=== PATIENT | male | born 1975 | race Caucasian/White ===

== ENCOUNTER 2019-05-17 20:20 | Inpatient (IN) | payer MEDICAID ==
[~2019-05-17] VITALS: Ht 165.1 cm; Wt 111.6 kg
[2019-05-17] MEDS ORDERED: ASPIRIN 81MG TABLET PO ONE (21:00)
[2019-05-17 21:17] LABS: BASOPHILS % 0.6 % (0.0-2.0); EOSINOPHILS % 0.8 % (0.0-5.0); HEMATOCRIT. 45.5 % (42.0-52.0); HEMOGLOBIN. 15.9 g/dL (14.0-18.0); LYMPHOCYTES % 27.8 % (20.0-50.0); MONOCYTES % 9.5 % (2.0-8.0); NEUTROPHILS % 61.3 % (40.0-76.0); PLATELET 216 x1000/uL (130-400); RED BLOOD CELL COUNT 5.29 mill/uL (4.7-6.1)
[2019-05-17 21:25] LABS: CHLORIDE 102 mEq/L (98-107)
[2019-05-17] MEDS: NITROGLYCERIN 0.4MG TABLET SL SL PRN ×3 (21:28→21:56)
[2019-05-17] MEDS ORDERED: ACETAMINOPHEN 325MG TABLET PO STA (21:36)
[2019-05-17] MEDS ORDERED: SODIUM CHLORIDE 0.9% 1000ML BAG (SEPSIS BOLUS) IV ONE (21:45)
[2019-05-17] MEDS ORDERED: OSELTAMIVIR 75MG CAPSULE PO ONE (21:45)
[2019-05-17] MEDS ORDERED: LEVOFLOXACIN 750MG PREMIX 150 ML IV ONE (21:45)
[2019-05-17] MEDS ORDERED: INSULIN REGULAR (HUMULIN R) UD 100 UNITS/ML SYR SUBCUT ONE (22:00)
[2019-05-17] MEDS ORDERED: INSULIN REGULAR (HUMULIN R) 300UNITS/3ML SUBCUT ONE (22:15)
[2019-05-18] MEDS ORDERED: ACETAMINOPHEN 650MG/20.3ML UDC GT PRN (02:30)
[2019-05-18] MEDS ORDERED: MAGNESIUM/ALUMINUM HYDROXIDE/SIMETHICONE 30ML UDC PO PRN (02:30)
[2019-05-18] MEDS ORDERED: ACETAMINOPHEN 650MG SUPP PR PRN (02:30)
[2019-05-18] MEDS ORDERED: IPRATROPIUM/ALBUTEROL 0.5-3(2.5)MG/3ML NEB HHN PRN (02:30)
[2019-05-18] MEDS ORDERED: GUAIFENESIN 200MG/10ML SUGAR FREE UDC PO PRN (02:30)
[2019-05-18] MEDS ORDERED: LEVOFLOXACIN 500MG PREMIX 100 ML IV SCH ×3 (02:30→23:00)
[2019-05-18] MEDS ORDERED: DEXTROSE 50% WATER 50ML SYRINGE IV PRN (02:30)
[2019-05-18] MEDS ORDERED: ONDANSETRON HCL 4MG/2ML INJ IV PRN (02:30)
[2019-05-18] MEDS ORDERED: DIPHENHYDRAMINE 50MG/ML VIAL IV PRN (02:30)
[2019-05-18] MEDS ORDERED: CLONIDINE 0.1MG TABLET PO PRN (02:30)
[2019-05-18] MEDS: SODIUM CHLORIDE 0.9% INJ 3ML FLUSH IVF SCH ×3 (08:07→21:16)
[2019-05-18] MEDS: BLOOD SUGAR DIAGNOSTIC STRIP TEST SCH ×4 (08:56→20:29)
[2019-05-18] MEDS ORDERED: ENOXAPARIN 40MG/0.4ML SYR SUBCUT SCH (09:00)
[2019-05-18] MEDS: INSULIN LISPRO 100 UNITS/ML SUBCUT SCH ×4 (09:10→20:38)
[2019-05-18 10:44] LABS: CLARITY URINE CLEAR (CLEAR); COLOR URINE YELLOW (YELLOW); KETONES URINE 1+ (NEGATIVE); LEUKOCYTE ESTERASE URINE NEGATIVE (NEGATIVE); NITRITE URINE NEGATIVE (NEGATIVE); OCCULT BLOOD URINE NEGATIVE (NEGATIVE); PROTEIN URINE NEGATIVE (NEGATIVE); SPECIFIC GRAVITY URINE 1.024 (1.005-1.030); UROBILINOGEN URINE 0.2 E.U./dL (0.2-1.0)
[2019-05-18 10:57] LABS: *BENZODIAZEPINES SCREEN URINE NEGATIVE (NEGATIVE); *COCAINE SCREEN URINE NEGATIVE (NEGATIVE); METHADONE URINE SCREEN NEGATIVE (NEGATIVE); OPIATES URINE SCREEN NEGATIVE (NEGATIVE)
[2019-05-18 10:58] LABS: *AMPHETAMINES SCREEN URINE NEGATIVE (NEGATIVE); *BARBITURATES SCREEN URINE NEGATIVE (NEGATIVE); CANNABINOID URINE SCREEN NEGATIVE (NEGATIVE); PHENCYCLIDINE URINE SCREEN NEGATIVE (NEGATIVE)
[2019-05-18] MEDS ORDERED: CLOPIDOGREL 75MG TABLET PO SCH (12:30)
[2019-05-18 16:00] VITALS: BP 125/85
[2019-05-18 17:45] LABS: CREATINE KINASE 94 IU/L (39-308)
[2019-05-18 17:46] LABS: CREATINE KINASE MB FRACTION < 1.0 ng/mL (0.5-3.6); T4 FREE 1.49 ng/dL (0.76-1.46)
[2019-05-18] MEDS: CLOPIDOGREL 75MG TABLET PO SCH (17:53)
[2019-05-18] MEDS ORDERED: FISH1CAP34 MT (19:08)
[2019-05-18] MEDS ORDERED: METF-416 MT (19:08)
[2019-05-18] MEDS ORDERED: LISI-186 PO (19:11)
[2019-05-18 20:00] VITALS: BP 129/80
[2019-05-18] MEDS ORDERED: INFLUENZA VIRUS VACCINE(AFLURIA) 0.5ML SYR IM ONE (20:00)
[2019-05-18] MEDS: ENOXAPARIN 30MG/0.3ML SYR SUBCUT SCH (20:36)
[2019-05-19] VITALS: BP 132/92
[2019-05-19 01:02] LABS: CREATINE KINASE 92 IU/L (39-308)
[2019-05-19 01:03] LABS: CREATINE KINASE MB FRACTION < 1.0 ng/mL (0.5-3.6)
[2019-05-19 04:00] VITALS: BP 113/51
[2019-05-19 06:14] LABS: BASOPHILS % 0.6 % (0.0-2.0); EOSINOPHILS % 1.4 % (0.0-5.0); HEMATOCRIT. 43.7 % (42.0-52.0); HEMOGLOBIN. 15.7 g/dL (14.0-18.0); MEAN CORPUSCULAR VOLUME 86.3 fL (80.0-94.0); MEAN PLATELET VOLUME 9.2 fl (7.4-10.4); MONOCYTES % 9.3 % (2.0-8.0); NEUTROPHILS % 41.7 % (40.0-76.0); PLATELET 190 x1000/uL (130-400); RED BLOOD CELL COUNT 5.06 mill/uL (4.7-6.1); RED CELL DISTRIBUTION WIDTH 12.9 % (11.6-14.6)
[2019-05-19 06:23] LABS: CHLORIDE 103 mEq/L (98-107)
[2019-05-19] MEDS: BLOOD SUGAR DIAGNOSTIC STRIP TEST SCH ×2 (06:29→11:24)
[2019-05-19] MEDS: SODIUM CHLORIDE 0.9% INJ 3ML FLUSH IVF SCH (06:30)
[2019-05-19 06:38] LABS: LDL CHOLESTEROL 103 mg/dL (5-100)
[2019-05-19 06:39] LABS: CREATINE KINASE 84 IU/L (39-308); HDL CHOLESTEROL 29 mg/dL (40-59)
[2019-05-19] MEDS: INSULIN LISPRO 100 UNITS/ML SUBCUT SCH ×2 (06:40→12:42)
[2019-05-19 06:42] LABS: CREATINE KINASE MB FRACTION < 1.0 ng/mL (0.5-3.6)
[2019-05-19 08:00] VITALS: BP 126/88
[2019-05-19] MEDS: CLOPIDOGREL 75MG TABLET PO SCH (08:11)
[2019-05-19] MEDS: ENOXAPARIN 30MG/0.3ML SYR SUBCUT SCH (08:11)
[2019-05-19] MEDS ORDERED: ASPIRIN 81MG TABLET PO SCH (09:00)
[2019-05-19 12:00] VITALS: BP 123/84
[2019-05-19] MEDS ORDERED: AZIT500T3 MT (13:17)
== END 2019-05-19 16:40 | disposition home or self-care (01) | DRG 139 ==
LOC: ER 20:20 → 8WST 05-18 00:01 → ENRESERV 05-18 13:28
PROVIDERS: ADMIT Family Medicine; ATTEND Family Medicine
DX: J18.9 Pneumonia, unspecified organism (principal); E11.65 Type 2 diabetes mellitus with hyperglycemia; R07.9 Chest pain, unspecified; E66.9 Obesity, unspecified; I10 Essential (primary) hypertension; E78.5 Hyperlipidemia, unspecified; Z79.899 Other long term (current) drug therapy
CPT/HCPCS: 36415; 71045; 80053; 80061; 80305; 81003; 82550; 82553; 82962; 83036; 83605; 83880; 84439; 84443; 84484; 85025; 85379; 87804; 90686; 93005; 93306; 99291; J1650; J1815; J1956; J7030